=== PATIENT | male | born 1970 | race Caucasian/White ===

== ENCOUNTER 2023-06-17 18:22 | Inpatient (IN) | payer BC ==
[~2023-06-17] VITALS: Ht 175.3 cm; Wt 92.1 kg
[2023-06-17] MEDS ORDERED: ASPIRIN 325MG EC TABLET PO ONE (18:45)
[2023-06-17 19:15] LABS: BASOPHILS % 0.5 % (0.0-2.0); EOSINOPHILS % 0.8 % (0.0-5.0); HEMATOCRIT. 38.5 % (42.0-52.0); HEMOGLOBIN. 13.5 g/dL (14.0-18.0); LYMPHOCYTES % 19.7 % (20.0-50.0); MEAN CORPUSCULAR HEMOGLOBIN 31.6 pg (28.0-32.0); MEAN CORPUSCULAR VOLUME 90.2 fL (80.0-94.0); MEAN PLATELET VOLUME 6.9 fl (7.4-10.4); MONOCYTES % 9.4 % (2.0-8.0); NEUTROPHILS % 69.6 % (40.0-76.0); PLATELET 355 x1000/uL (130-400); RED BLOOD CELL COUNT 4.27 mill/uL (4.7-6.1); RED CELL DISTRIBUTION WIDTH 15.5 % (11.6-14.6); WHITE BLOOD COUNT 7.9 x1000/uL (4.5-11.0)
[2023-06-17 19:39] LABS: ALANINE AMINOTRANSFERASE 118 IU/L (10-49); ALBUMIN 5.1 g/dL (3.2-4.8); ASPARTATE AMINOTRANSFERASE 116 IU/L (<34); BILIRUBIN TOTAL 0.9 mg/dL (0.1-1.0); CALCIUM 9.4 mg/dL (8.7-10.4); CARBON DIOXIDE 27 mEq/L (21-32); CHLORIDE 102 mEq/L (98-107); CREATININE 1.1 mg/dL (0.6-1.3); GLUCOSE 99 mg/dL (70-105); POTASSIUM 3.6 mEq/L (3.5-5.1); PROTEIN TOTAL 8.5 g/dL (6.0-8.3); SODIUM 138 mEq/L (136-145); TROPONIN I HIGH SENSITIVITY 30 ng/L (3.0-53); UREA NITROGEN BLOOD 13 mg/dL (9-23)
[2023-06-17 20:08] LABS: TROPONIN I HIGH SENSITIVITY 30 ng/L (3.0-53)
[2023-06-17] MEDS: ASPIRIN 325MG EC TABLET PO NR (21:53)
[2023-06-17] MEDS: CLOPIDOGREL 75MG TABLET PO SCH (21:53)
[2023-06-17] MEDS: ENOXAPARIN 100MG/ML SYR SUBCUT NR (21:55)
[2023-06-18] MEDS: ASPIRIN 81MG TABLET PO SCH (08:46)
[2023-06-18] MEDS: SODIUM CHLORIDE 0.9% 1,000 ML IV SCH (08:55)
[2023-06-18 11:02] LABS: BASOPHILS % 0.8 % (0.0-2.0); EOSINOPHILS % 1.5 % (0.0-5.0); HEMATOCRIT. 37.4 % (42.0-52.0); LYMPHOCYTES % 23.5 % (20.0-50.0); MEAN CORPUSCULAR HEMOGLOBIN 30.9 pg (28.0-32.0); MEAN CORPUSCULAR HGB CONC 34.8 g/dL (31.0-37.0); MEAN CORPUSCULAR VOLUME 88.9 fL (80.0-94.0); MEAN PLATELET VOLUME 7.2 fl (7.4-10.4); MONOCYTES % 10.4 % (2.0-8.0); NEUTROPHILS % 63.8 % (40.0-76.0); PLATELET 319 x1000/uL (130-400); RED CELL DISTRIBUTION WIDTH 15.1 % (11.6-14.6); WHITE BLOOD COUNT 6.1 x1000/uL (4.5-11.0)
[2023-06-18 11:30] LABS: CALCIUM 8.4 mg/dL (8.7-10.4); CARBON DIOXIDE 28 mEq/L (21-32); CHLORIDE 104 mEq/L (98-107); CREATININE 0.8 mg/dL (0.6-1.3); GLUCOSE 99 mg/dL (70-105); POTASSIUM 3.3 mEq/L (3.5-5.1); SODIUM 139 mEq/L (136-145); UREA NITROGEN BLOOD 11 mg/dL (9-23)
[2023-06-18] MEDS ORDERED: ASPIRIN/SOD BICARB/CITRIC ACID 324MG TAB EFF ONE (12:07)
[2023-06-18] MEDS ORDERED: MIDAZOLAM HCL 2 MG/2 ML VIAL ONE (13:05)
[2023-06-18] MEDS ORDERED: FENTANYL CITRATE/PF 50MCG/ML 2ML VIAL ONE (13:05)
[2023-06-18] MEDS ORDERED: IODIXANOL 320MG/ML 100 ML BOTTLE IV ONE (13:49)
[2023-06-18] MEDS ORDERED: ATROPINE SULFATE 1MG/10ML SYR IV PRN (14:30)
[2023-06-18] MEDS ORDERED: MORPHINE SULFATE 2 MG/ML CPJ (NOT FOR IM USE) IV PRN (14:30)
[2023-06-18] MEDS ORDERED: ACETAMINOPHEN 325MG TABLET PO PRN (14:30)
[2023-06-18] MEDS ORDERED: ONDANSETRON HCL 4MG/2ML INJ IV PRN (14:30)
[2023-06-18] MEDS: CLOPIDOGREL 75MG TABLET PO NR (14:30)
[2023-06-18] MEDS ORDERED: CLOPIDOGREL 75MG TABLET ONE (14:33)
[2023-06-18 14:50] VITALS: BP 130/86; PULSE 80; RESP 20
[2023-06-18 15:00] VITALS: BP 129/97; PULSE 64; RESP 20
[2023-06-18] MEDS: POTASSIUM CHLORIDE 20MEQ TABLET SR PO NR (15:12)
[2023-06-18] MEDS: SODIUM CHLORIDE 0.45% 1,000 ML IV ONE (15:13)
[2023-06-18 15:15] VITALS: BP 139/95; PULSE 79; RESP 20; TEMP 98
[2023-06-18 15:51] VITALS: BP 132/77; PULSE 62; RESP 20; TEMP 98
[2023-06-18 18:03] VITALS: BP 138/77; PULSE 83; RESP 22
[2023-06-18 20:00] VITALS: BP 129/82; PULSE 80; RESP 16; TEMP 98.5
[2023-06-19] VITALS: BP 133/72; PULSE 66; RESP 17; TEMP 98.2
[2023-06-19 04:00] VITALS: BP 131/80; PULSE 63; RESP 11; TEMP 98.2
[2023-06-19 07:11] LABS: CALCIUM 8.4 mg/dL (8.7-10.4); CARBON DIOXIDE 29 mEq/L (21-32); CHLORIDE 106 mEq/L (98-107); CREATININE 0.8 mg/dL (0.6-1.3); GLUCOSE 100 mg/dL (70-105); SODIUM 140 mEq/L (136-145); UREA NITROGEN BLOOD 10 mg/dL (9-23)
[2023-06-19 07:39] LABS: BASOPHILS % 0.4 % (0.0-2.0); EOSINOPHILS % 1.7 % (0.0-5.0); HEMATOCRIT. 35.9 % (42.0-52.0); HEMOGLOBIN. 12.7 g/dL (14.0-18.0); LYMPHOCYTES % 17.1 % (20.0-50.0); MEAN CORPUSCULAR HEMOGLOBIN 31.8 pg (28.0-32.0); MEAN CORPUSCULAR HGB CONC 35.4 g/dL (31.0-37.0); MEAN CORPUSCULAR VOLUME 89.9 fL (80.0-94.0); MONOCYTES % 10.9 % (2.0-8.0); NEUTROPHILS % 69.9 % (40.0-76.0); PLATELET 287 x1000/uL (130-400); RED CELL DISTRIBUTION WIDTH 14.6 % (11.6-14.6); WHITE BLOOD COUNT 6.7 x1000/uL (4.5-11.0)
[2023-06-19] MEDS: CLOPIDOGREL 75MG TABLET PO SCH (08:07)
[2023-06-19] MEDS: ASPIRIN 81MG TABLET PO SCH (08:08)
[2023-06-19 08:29] VITALS: BP 131/80; PULSE 63; TEMP 98.2; O2SAT 100
[2023-06-19 08:49] VITALS: BP 120/74; PULSE 77; RESP 20; TEMP 98
[2023-06-19] MEDS ORDERED: ASPI-1160 PO (12:13)
[2023-06-19] MEDS ORDERED: CLOP-31 PO (12:13)
== END 2023-06-19 13:28 | disposition home or self-care (01) | DRG 322 ==
LOC: ER 18:22 → 5WST 06-18 00:59 → 3WST 06-18 14:53
PROVIDERS: ADMIT Family Medicine Adult Medicine; ATTEND Family Medicine Adult Medicine
PROC: 027034Z Dilation of Coronary Artery, One Artery with Drug-eluting Intraluminal Device, Percutaneous Approach (ICD-10-PCS; principal; 2023-06-18)
PROC: 4A023N7 Measurement of Cardiac Sampling and Pressure, Left Heart, Percutaneous Approach (ICD-10-PCS; 2023-06-18)
PROC: B211YZZ Fluoroscopy of Multiple Coronary Arteries using Other Contrast (ICD-10-PCS; 2023-06-18)
PROC: B240ZZ3 Ultrasonography of Single Coronary Artery, Intravascular (ICD-10-PCS; 2023-06-18)
DX: I25.10 Atherosclerotic heart disease of native coronary artery without angina pectoris (principal); I50.32 Chronic diastolic (congestive) heart failure; E87.6 Hypokalemia; D64.9 Anemia, unspecified; E78.5 Hyperlipidemia, unspecified; I11.0 Hypertensive heart disease with heart failure; Z98.84 Bariatric surgery status; Z79.899 Other long term (current) drug therapy
CPT/HCPCS: 36415; 71045; 80048; 80053; 83735; 84484; 85025; 85347; 92928; 92978; 93005; 93306; 93458; 99285; C1753; C1769; C1874; C1887; J1644; J1650; J2250; J3010; Q9967